=== PATIENT | male | born 2000 | race Caucasian/White ===

== ENCOUNTER 2022-12-28 22:52 | Emergency (ER) | payer SELFPAY ==
[~2022-12-28] VITALS: Ht 175.3 cm; Wt 77.3 kg
[2022-12-29] MEDS ORDERED: IBUPROFEN 800MG TABLET PO ONE
[2022-12-29 01:14] VITALS: BP 126/76
[2022-12-29] MEDS: IBUPROFEN 800MG TABLET PO NR (01:14)
[2022-12-29] MEDS ORDERED: IBUP-2030 PO (02:25)
== END 2022-12-29 02:35 | disposition home or self-care (01) ==
LOC: ER 22:52
DX: R07.81 Pleurodynia (principal); R51.9 Headache, unspecified; M79.10 Myalgia, unspecified site; Y08.89XA Assault by other specified means, initial encounter; Y93.89 Activity, other specified; Y92.89 Other specified places as the place of occurrence of the external cause; Y99.8 Other external cause status; Z88.0 Allergy status to penicillin
CPT/HCPCS: 71101; 99283

== ENCOUNTER 2023-02-16 13:54 | Emergency (ER) | payer MEDICAID ==
[~2023-02-16] VITALS: Ht 175.3 cm; Wt 69.0 kg
[~2023-02-16 13:54] MED LIST: IBUP-2030 PO
[2023-02-16 13:58] VITALS: BP 114/64
[2023-02-16 19:05] LABS: CLARITY URINE CLEAR (CLEAR); COLOR URINE YELLOW (YELLOW); KETONES URINE NEGATIVE (NEGATIVE); LEUKOCYTE ESTERASE URINE 1+ (NEGATIVE); NITRITE URINE NEGATIVE (NEGATIVE); OCCULT BLOOD URINE NEGATIVE (NEGATIVE); PH URINE 5.5 (4.5-8.0); PROTEIN URINE TRACE (NEGATIVE); SPECIFIC GRAVITY URINE 1.034 (1.005-1.030)
[2023-02-16] MEDS ORDERED: AZITHROMYCIN 500 MG TABLET PO SCH (19:13)
[2023-02-16] MEDS ORDERED: IBUP-2030 PO (19:53)
[2023-02-16] MEDS ORDERED: DOXY150T5 MT (19:53)
== END 2023-02-16 20:03 | disposition home or self-care (01) ==
LOC: ER 14:35
DX: Z11.3 Encounter for screening for infections with a predominantly sexual mode of transmission (principal); Z88.0 Allergy status to penicillin
CPT/HCPCS: 81003; 87591; 99283